=== PATIENT | male | born 1985 | race Caucasian/White ===

== ENCOUNTER 2019-06-11 08:26 | Emergency (ER) | payer BC ==
[2019-06-11 08:58] VITALS: BP 174/99
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
== END 2019-06-11 09:31 | disposition home or self-care (01) ==
LOC: UCCORT 08:26
DX: J01.00 Acute maxillary sinusitis, unspecified (principal); Z87.891 Personal history of nicotine dependence
CPT/HCPCS: 99202; G0463